=== PATIENT | male | born 1970 | race Caucasian/White ===

== ENCOUNTER → 2020-12-08 15:11 | Outpatient (BNVA) | payer BC, SELFPAY | PROVIDERS: Family Provider Nurse Practitioner Family; PCP Nurse Practitioner Family; Visit Provider Registered Nurse | DX: R31.9 Hematuria, unspecified (principal); I10 Essential (primary) hypertension | CPT/HCPCS: 81000 ==

== ENCOUNTER → 2020-12-11 11:04 | Outpatient (BNVA) | payer BC, OTHER, SELFPAY | PROVIDERS: Family Provider Nurse Practitioner Family; PCP Nurse Practitioner Family; Visit Provider Registered Nurse | DX: R31.9 Hematuria, unspecified (principal) | CPT/HCPCS: 82043; 87086; 88112 ==

== ENCOUNTER → 2021-01-10 09:22 | Outpatient (BNVA) | payer BC, OTHER, SELFPAY | PROVIDERS: Family Provider Nurse Practitioner Family; PCP Registered Nurse; Visit Provider Registered Nurse | DX: R31.9 Hematuria, unspecified (principal); N41.9 Inflammatory disease of prostate, unspecified; I10 Essential (primary) hypertension; E78.5 Hyperlipidemia, unspecified | CPT/HCPCS: 80053; 80061; 81000; 84153; 84443; 85025; 87086; 88112; 88304 ==

== ENCOUNTER → 2021-07-13 13:03 | Outpatient (BNVA) | payer OTHER, SELFPAY | PROVIDERS: Family Provider Nurse Practitioner Family; PCP Registered Nurse; Visit Provider Registered Nurse | DX: R31.0 Gross hematuria (principal); N41.9 Inflammatory disease of prostate, unspecified; I10 Essential (primary) hypertension; M10.9 Gout, unspecified | CPT/HCPCS: 81000 ==

== ENCOUNTER → 2021-07-27 13:58 | Outpatient (BNVA) | payer OTHER, SELFPAY | PROVIDERS: Family Provider Nurse Practitioner Family; PCP Registered Nurse; Visit Provider Urology | DX: N41.0 Acute prostatitis (principal); R31.0 Gross hematuria; R31.29 Other microscopic hematuria | CPT/HCPCS: 81003; 87086; 88112 ==

== ENCOUNTER → 2021-12-13 13:18 | Outpatient (BNVA) | payer OTHER, SELFPAY | PROVIDERS: Family Provider Nurse Practitioner Family; PCP Registered Nurse; Visit Provider Registered Nurse | DX: I10 Essential (primary) hypertension (principal); E66.01 Morbid (severe) obesity due to excess calories; Z68.45 Body mass index [BMI] 70 or greater, adult | CPT/HCPCS: 80053; 80061; 81003; 85025 ==

== ENCOUNTER 2022-05-16 11:05 | Outpatient (CLI) | payer OTHER, SELFPAY ==
--- NOTE | 2022-05-16 11:36 | XR_ITS ---
WS: [id number] XR lumbar spine 2-3V* [id number] REASON FOR EXAM: M54.40 - Lumbago with sciatica, unspecified side FINDINGS: AP view is nondiagnostic. On the lateral view no significant vertebral body compression deformity or focal vertebral body lesio n is identified. There is mild narrowing of the disc space at L5-S1. There are anterior osteophytes from L1 to S1 most prominently at L3-L4. There is no significant spondylolisthesis and no spondylolysis is identified. XR/XR lumbar spine 2-3V* [id number] IMPRESSION: Limited examination demonstrating degenerative spondylosis as above.
== END 2022-05-16 11:06 | disposition home or self-care (01) ==
PROVIDERS: PCP Registered Nurse; Visit Provider Registered Nurse
DX: M54.40 Lumbago with sciatica, unspecified side (principal)
CPT/HCPCS: 72100

== ENCOUNTER → 2022-11-22 10:22 | Outpatient (BNVA) | payer BC, SELFPAY | PROVIDERS: PCP Registered Nurse; Visit Provider Registered Nurse | DX: E66.01 Morbid (severe) obesity due to excess calories (principal); Z68.45 Body mass index [BMI] 70 or greater, adult; E78.5 Hyperlipidemia, unspecified | CPT/HCPCS: 80061; 83036 ==

== ENCOUNTER 2023-02-14 10:20 | Outpatient (RCR) | payer OTHER, SELFPAY | END 2023-02-14 23:59 | disposition home or self-care (01) | LOC: SPT 10:20 | PROVIDERS: PCP Registered Nurse; Visit Provider Family Medicine | DX: S89.90XA Unspecified injury of unspecified lower leg, initial encounter (principal); X58.XXXA Exposure to other specified factors, initial encounter | CPT/HCPCS: 97110; 97162 ==

== ENCOUNTER 2023-03-04 07:16 | Outpatient (CLI) | payer OTHER, SELFPAY ==
--- NOTE | 2023-03-04 08:00 | CT_ITS ---
WS: [id number] CT HEAD NONCONTRAST HISTORY: F07.81 - Postconcussional syndrome TECHNIQUE: Contiguous axial imaging performed through the brain in 2.5 mm imaging. Bone and soft tiss ue windows. Sagittal and coronal reformats reviewed. All CT scans at [facility] use at least one of these dose optimization techniques: automated exposure control; mA and/or kV adjustment per pa tient size (includes targeted exams where dose is matched to clinical indication); or iterative recon struction. DLP: 1133.28 mGy.cm COMPARISON: 05/07/2018 No acute intracranial hemorrhage, midline shift or mass effect. Mild bifrontal lobe atrophy, expected for a patient of this age. Probably not progressed since the pr ior study. No areas of infarct with only minimal small vessel ischemic disease. There is also mild ce rebellar atrophy. Ventricles: Normal size with no hydrocephalus. Paranasal sinuses: As visualized are clear. Mastoid air cells: Well pneumatized. Calvarium and scalp: Skull is intact with no soft tissue edema or swelling. CT/CT head wo con* [id number] IMPRESSION: 1. No acute intracranial hemorrhage or edema. 2. Mild to moderate bifrontal lobe atrophy and mild cerebellar atrophy. Simila r to the prior study from 2018. No prior infarcts.
--- NOTE | 2023-03-04 08:45 | MR_ITS ---
WS: [id number] MRI RIGHT KNEE NONCONTRAST TECHNIQUE: Axial PD, coronal PD fat sat, coronal PD, sagittal PD, and sagittal PD fat-sat images obta ined. CLINICAL INFORMATION: S89.90XA - Unspecified injury of unspecified lower leg, i... COMPARISON: None. FINDINGS: Distal quadriceps and patella tendons are intact. Hypertrophic patella. Small to moderate suprapatell ar effusion. Normal ACL and PCL. Soft tissue edema about the joint line. Prepatellar and infrapatella r soft tissue subcutaneous edema. Hypertrophic changes along the joint line. Grade III chondromalacia medial joint compartment with near complete loss of joint space. Normal lateral meniscus. Horizontal tear involving the anterior horn medial meniscus. Blunting of the medial meniscus with peripheral ex trusion. Advanced chondromalacia patella. Small amount of subchondral edema. Medial and lateral patellar retin aculum appear intact. Medial and lateral collateral ligaments appear intact. Normal popliteal fossa. MR/MR knee RT wo con* [id number] IMPRESSION: 1. ACL and PCL are intact. 2. Small to moderate suprapatellar effusion with soft tissue edema about the j oint line. Prepatellar and infrapatellar soft tissue edema. 3. Advanced degenerative narrowing medial joint compartment with grade III cho ndromalacia. Tear of the anterior horn medial meniscus with peripheral extrusio n of the medial meniscus. 4. Advanced chondromalacia patella with subchondral edema. 5. Medial and lateral collateral ligaments appear intact. Outbridge grading: grade III: partial-thickness cartilage loss with focal ulcer ation
== END 2023-03-04 07:17 | disposition home or self-care (01) ==
LOC: RAD 07:18
PROVIDERS: PCP Registered Nurse; Visit Provider Family Medicine
DX: S89.90XA Unspecified injury of unspecified lower leg, initial encounter (principal); X58.XXXA Exposure to other specified factors, initial encounter; M25.461 Effusion, right knee; M22.41 Chondromalacia patellae, right knee; F07.81 Postconcussional syndrome; G31.9 Degenerative disease of nervous system, unspecified
CPT/HCPCS: 70450; 73721

== ENCOUNTER → 2023-03-05 13:58 | Outpatient (BNVA) | payer OTHER, SELFPAY | PROVIDERS: PCP Registered Nurse; Referring Provider Family Medicine; Visit Provider Orthopaedic Surgery | DX: M17.10 Unilateral primary osteoarthritis, unspecified knee (principal) | CPT/HCPCS: 73560; 73565 ==

== ENCOUNTER → 2023-03-11 13:34 | Outpatient (BNVA) | payer BC, SELFPAY | PROVIDERS: PCP Registered Nurse; Visit Provider Registered Nurse | DX: E11.9 Type 2 diabetes mellitus without complications (principal) | CPT/HCPCS: 83036 ==

== ENCOUNTER → 2023-07-24 09:12 | Outpatient (BNVA) | payer BC, SELFPAY | PROVIDERS: PCP Registered Nurse; Visit Provider Registered Nurse | DX: E11.9 Type 2 diabetes mellitus without complications (principal) | CPT/HCPCS: 80053; 83036 ==

== ENCOUNTER → 2023-08-04 11:46 | Outpatient (BNVA) | payer BC, SELFPAY | PROVIDERS: PCP Registered Nurse; Visit Provider Registered Nurse | DX: R60.0 Localized edema (principal); E66.01 Morbid (severe) obesity due to excess calories; Z68.44 Body mass index [BMI] 60.0-69.9, adult | CPT/HCPCS: 80048 ==

== ENCOUNTER → 2024-02-05 11:05 | Outpatient (BNVA) | payer MEDICAID, SELFPAY | PROVIDERS: PCP Registered Nurse; Visit Provider Registered Nurse | DX: E11.9 Type 2 diabetes mellitus without complications (principal); M10.9 Gout, unspecified | CPT/HCPCS: 80053; 80061; 83036; 84550; 85025 ==

== ENCOUNTER → 2025-08-10 08:24 | Outpatient (BNVA) | payer MEDICARE, MEDICAID, SELFPAY | PROVIDERS: PCP Registered Nurse; Visit Provider Nurse Practitioner Family | DX: M51.16 Intervertebral disc disorders with radiculopathy, lumbar region (principal) | CPT/HCPCS: 99214 ==

== ENCOUNTER → 2025-09-07 09:45 | Outpatient (BNVA) | payer MEDICARE, MEDICAID, SELFPAY | PROVIDERS: PCP Registered Nurse; Visit Provider Nurse Practitioner Family | DX: M51.16 Intervertebral disc disorders with radiculopathy, lumbar region (principal) | CPT/HCPCS: 99214 ==